=== PATIENT | male | born 1945 | race Caucasian/White ===

== ENCOUNTER 2018-04-19 13:15 | Inpatient (IN) | payer OTHER, BC ==
[~2018-04-19] VITALS: Ht 162.6 cm; Wt 72.2 kg
[2018-04-19 17:43] VITALS: BP 137/69
[2018-04-19] MEDS ORDERED: LOPRESSOR50 MG PO (18:29)
[2018-04-19] MEDS ORDERED: CHLORTHALIDONE25 MG PO (18:30)
[2018-04-19] MEDS ORDERED: LISINOPRIL30 MG PO (18:31)
[2018-04-19] MEDS ORDERED: EFUDEX 5% CREAM25 GM TP (18:35)
[2018-04-19] MEDS ORDERED: NORVASC5 MG PO (18:36)
[2018-04-19] MEDS ORDERED: NEURONTIN300 MG PO ×2 (18:38)
[2018-04-19] MEDS ORDERED: VENTOLIN HFA18 GM IH (18:39)
[2018-04-19] MEDS ORDERED: DESOXIMETASONE15 G1 TP ×2 (18:42→18:43)
[2018-04-19] MEDS ORDERED: NEXIUM40 MG PO (18:44)
[2018-04-19] MEDS ORDERED: DURAGESIC50 MCG TD (18:45)
[2018-04-19 19:30] VITALS: BP 150/72
[2018-04-19 20:19] LABS: BASOPHIL (%) 0.3 % (0-1); BASOPHIL COUNT 0.1 K/uL (0-0.1); EOSINOPHIL (%) 0.5 % (0-5); EOSINOPHIL COUNT 0.1 K/uL (0-0.3); HEMATOCRIT 36.4 % (38.0-50.0); HEMOGLOBIN 11.9 G/DL (12.5-16.6); IMMATURE GRANULOCYTE (%) 0.6 % (0.0-0.7); LYMPHOCYTE (%) 11.3 % (15-42); LYMPHOCYTE COUNT 1.7 K/uL (1.0-2.8); MCH 32.5 PG (29.0-34.0); MCHC 32.7 G/DL (30.0-36.0); MCV 99.5 FL (86-99); MONOCYTE (%) 7.2 % (3-12); MONOCYTE COUNT 1.1 K/uL (0-0.8); NEUTROPHIL (%) 80.1 % (45-76); NEUTROPHIL COUNT 11.7 K/uL (1.8-6.4); PLATELET COUNT 254 K/uL (156-360); RBC DIS.WIDTH-CV 12.9 % (11.8-14.6); RBC DIS.WIDTH-SD 47.2 % (39-53); RED BLOOD COUNT 3.66 M/uL (4.00-5.50); WHITE BLOOD COUNT 14.6 K/uL (4.1-10.2)
[2018-04-19 20:38] LABS: ALBUMIN 3.4 G/DL (3.2-4.8); ALKALINE PHOSPHATASE 65 IU/L (3-129); ALT (GPT) 14 IU/L (3-49); AST (GOT) 24 IU/L (2-34); CHLORIDE 102 MEQ/L (99-109); CREATININE 1.1 MG/DL (0.6-1.3); GFR ESTIMATE (CALCULATED) > 59 mL/min/ (58.99-99999); GLUCOSE 118 mg/dL (70-99); POTASSIUM 3.6 MEQ/L (3.7-5.4); SODIUM 137 MEQ/L (136-147); TOTAL BILIRUBIN 0.6 MG/DL (0.0-1.0); TOTAL PROTEIN 6.2 G/DL (6.4-8.3); UREA NITROGEN (BUN) 16 mg/dL (9-23)
[2018-04-19 21:40] VITALS: BP 146/71
[2018-04-19 22:10] LABS: APPEARANCE CLEAR ((CLEAR)); BILIRUBIN NEGATIVE; BLOOD NEGATIVE; COLOR YELLOW ((YELLOW)); GLUCOSE (STRIP) 50; KETONES NEGATIVE; LEUKOCYTES NEGATIVE; NITRITE NEGATIVE; PROTEIN (STRIP) NEGATIVE; SPECIFIC GRAVITY 1.011 (1.000-1.030); UROBILINOGEN 0.2 MG/DL (0.2-1.0)
[2018-04-19 23:00] LABS: ERTH.SED.RATE 56 MM/HR (0-20)
[2018-04-19 23:07] VITALS: BP 141/70
[2018-04-19 23:18] LABS: C-REACTIVE PROTEIN 74.3 MG/L (0-10)
[2018-04-20 04:56] VITALS: BP 137/69
[2018-04-20 06:35] LABS: HEMATOCRIT 36.1 % (38.0-50.0); HEMOGLOBIN 11.8 G/DL (12.5-16.6); MCH 32.6 PG (29.0-34.0); MCHC 32.7 G/DL (30.0-36.0); MCV 99.7 FL (86-99); PLATELET COUNT 222 K/uL (156-360); RBC DIS.WIDTH-CV 12.8 % (11.8-14.6); RED BLOOD COUNT 3.62 M/uL (4.00-5.50); WHITE BLOOD COUNT 10.7 K/uL (4.1-10.2)
[2018-04-20 06:42] LABS: INTER. NORMALIZED RATIO 1.2
[2018-04-20 08:18] LABS: ALBUMIN 3.6 G/DL (3.2-4.8); CHLORIDE 104 MEQ/L (99-109); POTASSIUM 4.3 MEQ/L (3.7-5.4); SODIUM 139 MEQ/L (136-147)
[2018-04-20 08:23] VITALS: BP 170/80
[2018-04-20 08:23] LABS: TOTAL BILIRUBIN 0.8 MG/DL (0.0-1.0)
[2018-04-20 08:23] LABS: FOLIC ACID (FOLATE) > 22.0 NG/ML (5.0-22.0)
[2018-04-20 08:24] LABS: ALKALINE PHOSPHATASE 73 IU/L (3-129); ALT (GPT) 15 IU/L (3-49); AST (GOT) 28 IU/L (2-34); GFR ESTIMATE (CALCULATED) > 59 mL/min/ (58.99-99999); GLUCOSE 107 mg/dL (70-99); TOTAL PROTEIN 6.4 G/DL (6.4-8.3); UREA NITROGEN (BUN) 14 mg/dL (9-23)
[2018-04-20 12:36] LABS: C DIFF TOXIN POSITIVE (NEGATIVE)
[2018-04-20 16:53] VITALS: BP 138/69
[2018-04-20 23:12] VITALS: BP 142/78
[2018-04-21 07:31] VITALS: BP 132/68
[2018-04-21] MEDS ORDERED: VANCOMYCIN HCL125 MG PO (10:09)
== END 2018-04-21 12:58 | disposition home or self-care (01) | DRG 373 ==
LOC: ENRESERV 13:15 → 3EAST 13:15 → ENRESERV 14:16 → 3EAST 17:36
PROVIDERS: Hospitalist; Neurological Surgery
DX: A04.72 Enterocolitis due to Clostridium difficile, not specified as recurrent (principal); L40.9 Psoriasis, unspecified; J45.909 Unspecified asthma, uncomplicated; I10 Essential (primary) hypertension; F32.9 Major depressive disorder, single episode, unspecified; Z87.891 Personal history of nicotine dependence
CPT/HCPCS: 72158; 80053; 81003; 82607; 82746; 83605; 84443; 85025; 85027; 85610; 85651; 85730; 86140; 87040; 87493; 94640; 94664; J1170; J1644; J3370; J7030